=== PATIENT | female | born 1980 | race Caucasian/White ===

== ENCOUNTER → 2024-09-09 14:43 | Outpatient (BNVA) | payer OTHER, SELFPAY | PROVIDERS: Visit Provider Physician Assistant Medical | DX: S06.9X0A Unspecified intracranial injury without loss of consciousness, initial encounter (principal); S16.1XXA Strain of muscle, fascia and tendon at neck level, initial encounter; W00.0XXA Fall on same level due to ice and snow, initial encounter | CPT/HCPCS: 70450; 99203 ==

== ENCOUNTER → 2024-09-17 15:57 | Outpatient (BNVA) | payer OTHER, SELFPAY | PROVIDERS: Visit Provider Physician Assistant Medical | DX: S06.9X0A Unspecified intracranial injury without loss of consciousness, initial encounter (principal); W00.0XXA Fall on same level due to ice and snow, initial encounter; G47.9 Sleep disorder, unspecified; R51.9 Headache, unspecified; R11.0 Nausea | CPT/HCPCS: 99214 ==

== ENCOUNTER → 2024-09-25 11:48 | Outpatient (BNVA) | payer OTHER, SELFPAY | PROVIDERS: Visit Provider Physician Assistant Medical | DX: S06.9X0A Unspecified intracranial injury without loss of consciousness, initial encounter (principal); W00.0XXA Fall on same level due to ice and snow, initial encounter | CPT/HCPCS: 99213 ==

== ENCOUNTER → 2024-10-16 15:29 | Outpatient (BNVA) | payer OTHER, SELFPAY | PROVIDERS: Visit Provider Physician Assistant | DX: F07.81 Postconcussional syndrome (principal); M54.2 Cervicalgia; R51.9 Headache, unspecified | CPT/HCPCS: 99214 ==

== ENCOUNTER → 2024-10-22 11:30 | Outpatient (BNVA) | payer OTHER, SELFPAY | PROVIDERS: PCP Physician Assistant Medical; Visit Provider Physician Assistant Medical | DX: S06.9X0D Unspecified intracranial injury without loss of consciousness, subsequent encounter (principal); S16.1XXD Strain of muscle, fascia and tendon at neck level, subsequent encounter; W00.0XXD Fall on same level due to ice and snow, subsequent encounter | CPT/HCPCS: 99214 ==

== ENCOUNTER → 2024-10-30 15:21 | Outpatient (BNVA) | payer OTHER, SELFPAY | PROVIDERS: PCP Physician Assistant Medical; Visit Provider Physician Assistant Medical | DX: F07.81 Postconcussional syndrome (principal); S16.1XXD Strain of muscle, fascia and tendon at neck level, subsequent encounter; W00.0XXD Fall on same level due to ice and snow, subsequent encounter | CPT/HCPCS: 99213 ==

== ENCOUNTER → 2024-11-21 13:46 | Outpatient (BNVA) | payer OTHER, SELFPAY | PROVIDERS: PCP Physician Assistant Medical; Visit Provider Physician Assistant Medical | DX: F07.81 Postconcussional syndrome (principal); S16.1XXD Strain of muscle, fascia and tendon at neck level, subsequent encounter; W00.0XXD Fall on same level due to ice and snow, subsequent encounter | CPT/HCPCS: 99213 ==

== ENCOUNTER 2024-11-26 15:05 | Outpatient (RCR) | payer OTHER, SELFPAY ==
--- NOTE | 2024-10-28 15:31 | MHC.PT.EP ---
[facility] [place] Office [place] Office [place] Office [address] [phone] F: [phone] F: [phone] F: [phone] F: [phone] Physical Therapy Plan of Care Date of Evaluation: 10/28/24 Date of Surgery: Diagnosis: CERVICALGIA, CLOSED HEAD INJURY Assessment: 44 YO FEMALE REF TO PT W H/O FALLING ON ICE ONTO HER SCAPULAE, STRIKING HER POSTERIOR HEAD ON Sep- SHE HAS HAD ONGOING NOLAN AND ANGI CERVICAL PS/ UT TISSUE TENSION . SHE WAS WORKING FULL-TIME PRIOR TO INJURY, BUT HAS RTW 1/2 DAYS DUE TO HER NOLAN. OBJECTIVELY, SHE HAS DECR CERV ROTAT AND SB , DECR POST RC/ SCAP STRENGHT, GUARDED POSTURE, (+) TRP SUBOCCIPITAL REGION, DENIES RADICULAR SXS, AND FLUCTUATING PAIN /SUBOCCIP NOLAN. SHE HAS DECR DENAE TO MORE PHYSICALLY DEMANDING ADLs AND EXER. THE Pt IS MOTIVATED FOR PT AND ADDRESSING THE ABOVE FINDINGS, ESPEC SX MGMT TECHN. Frequency and Duration: The patient will be seen 2 x WK x 4 WKS Short Term Goals: * DECR UPPER CERV PAIN / UT PAIN TO 2-3/10 AND NOLAN DECR BY 75% *IMPROVE POSTURAL AWARENESS W ADLs *INITIATE HEP *REDUCE SCM MM COMPENSATION -> INCR DNF [place] [employer] Goals: *INDEP HEP AND SELF SX MGMT TECHN *Pt GRAD RESUME REG ADLs AND RTW REG DUTY-> IMPROVED NPDI ( AT [facility]) *WNL CERV AROM AND POST RC/ SCAP STRENGTH Treatment Plan: Modalities to reduce pain, spasms and effusion. Manual therapy to restore motion and function. Therapeutic exercise to improve strength and flexibility. Neuromuscular re-education for posture and balance. Therapeutic activities to return to functional activities of daily living. Electronically signed by: LUCI WOODARD,PT Please sign and return to therapist. Thank you for your referral.
--- NOTE | 2024-12-24 07:45 | MHC.PT.DC ---
[facility] [place] Office [place] Office [place] Office [address] Kasey Aguilar [address] [phone] F: [phone] F: [phone] F: [phone] F: [phone] Physical Therapy Discharge Report Diagnosis: CERVICALGIA, CLOSED HEAD INJURY Date of Surgery: Date of Evaluation: 10/28/24 Date of Discharge: 12/24/24 Treatments to Date: 8 Cancellations to Date: 0 No Shows to Date: 0 Discharge Status: Achieved Goals Improved Function Independent with HEP Discharge Summary: ALL GOALS MET. CERVICAL AROM WFL. MINIMAL HEADACHES AT THIS TIME, PER Pt, COULD BE DUE TO SINUS INFECTION. LUCI'S NPDI SCORE WAS 16/50 AT INITIAL EVAL , AND, 6/50 AT D/C FROM PT. SHE HAS A THOROUGH, PROGRESSIVE HEP. Electronically signed by: Luci Austin,PT Please sign and return to therapist. Thank you for your referral.
== END 2024-12-24 07:45 | disposition home or self-care (01) ==
LOC: HO.PT 15:05
PROVIDERS: PCP Physician Assistant Medical; Visit Provider Physician Assistant
DX: M54.2 Cervicalgia (principal); S09.90XD Unspecified injury of head, subsequent encounter; X58.XXXD Exposure to other specified factors, subsequent encounter
CPT/HCPCS: 97110; 97140; 97162; 97530